=== PATIENT | female | born 1955 | race Caucasian/White ===

== ENCOUNTER 2017-02-25 12:22 | Emergency (ER) | payer MEDICARE ==
[2017-02-25 12:47] VITALS: RESP 18; TEMP 97.7; O2SAT 99
[2017-02-25 14:17] LABS: URINE BILIRUBIN NEGATIVE (NEGATIVE); URINE BLOOD NEGATIVE (NEGATIVE); URINE COLOR Yellow (YELLOW); URINE GLUCOSE (UA) NORMAL (Normal); URINE KETONE NEGATIVE (NEGATIVE); URINE LEUKOCYTE ESTERASE NEG Leu/uL (Negative); URINE PROTEIN NEGATIVE (NEGATIVE); URINE UROBILINOGEN NORMAL mg/dL (0.2-1.0); WBC URINE 1 /hpf (0-5)
--- NOTE | 2017-02-25 15:06 | C.PDOC ---
History Of Present Illness Patient is a 61 y/o female who presents to the ED with a complaint of suprapubic pain for the past two days. Patient was referred to the ED by Dr. Robles for a CT of abdomen. Patient notes experiencing nausea and vomiting x1 yesterday and admits to finishing Keflex prescription 3 days ago for a UTI. Notes urinary frequency; denies fever. Patient has no other complaints at this time. Time Seen by Provider: 02/25/17 13:25 Chief Complaint (Nursing): Abdominal Pain History Per: Patient History/Exam Limitations: no limitations Onset/Duration Of Symptoms: Days (abdominal pain x3 days; n/v x1day. ) Current Symptoms Are (Timing): Still Present Location Of Pain/Discomfort: LLQ, Suprapubic Associated Symptoms: Nausea, Vomiting. denies: Fever Past Medical History Reviewed: Historical Data, Nursing Documentation, Vital Signs Vital Signs: Last Vital Signs Temp 97.7 F 02/25/17 18:00 Pulse 59 L 02/25/17 18:00 Resp 18 02/25/17 18:00 BP 138/80 02/25/17 18:00 Pulse Ox 99 02/25/17 18:00 - Medical History PMH: Asthma, HTN, Hypothyroidism Other Surgeries: Osteotomy. - Proposify Procedures BUNIONECT/SFT/OSTEOTOMY (12/11/13) Family History: States: No Known Family Hx - Social History Hx Tobacco Use: No Hx Alcohol Use: No Hx Substance Use: No - Immunization History Hx Tetanus Toxoid Vaccination: No Hx Influenza Vaccination: No Hx Pneumococcal Vaccination: No Review Of Systems Constitutional: Negative for: Fever Cardiovascular: Negative for: Chest Pain Respiratory: Negative for: Shortness of Breath Gastrointestinal: Positive for: Nausea, Vomiting, Abdominal Pain. Negative for : Diarrhea Genitourinary: Positive for: Frequency Physical Exam - Physical Exam Appears: Well, Non-toxic Skin: Normal Color, Warm, Dry Head: Atraumatic, Normacephalic Oral Mucosa: Moist Chest: Symmetrical Cardiovascular: Rhythm Regular, No Murmur Respiratory: Normal Breath Sounds, No Rales, No Rhonchi, No Wheezing Gastrointestinal/Abdominal: Soft, No Tenderness Neurological/Psych: Oriented x3, Normal Speech, Normal Cognition ED Course And Treatment - Laboratory Results Result Diagrams: 02/25/17 15:26 02/25/17 15:26 Lab Interpretation: Normal (ua neg.) O2 Sat by Pulse Oximetry: 99 (Room air) Pulse Ox Interpretation: Normal - CT Scan/US CT A/P Other Rad Studies (CT/US): Interpreted By Me, Read By Radiologist CT/US Interpretation: Few scattered diverticulosis without evidence of diverticulitis. Reevaluation Time: 17:56 Reassessment Condition: Improved Medical Decision Making Medical Decision Making: Plan: Urine culture ordered. IV fluids and Toradol administered. LLQ abd discomfort, diverticulosis without diverticulitis ? constipation. Disposition Doctor Will See Patient In The: Office Counseled Patient/Family Regarding: Studies Performed, Diagnosis - Disposition Referrals: Agustín Robles MD [Medical Doctor] - Disposition: HOME/ ROUTINE Disposition Time: 17:56 Condition: GOOD Additional Instructions: CT del abdomen y todos los examenes de vicente y orina normal + estrenemiento: freddie un purgante ? cosa del cervic- sigue con dodge Gynecolog[facility] Instructions: Constipation (ED) Forms: [employer] (Afghan) Print Language: [id number] - Clinical Impression Clinical Impression: Abdominal pain - Scribe Statement The provider has reviewed the documentation as recorded by the Scribe Brigid Estrada All medical record entries made by the Scribe were at my direction and personally dictated by me. I have reviewed the chart and agree that the record accurately reflects my personal performance of the history, physical exam, medical decision making, and the department course for this patient. I have also personally directed, reviewed, and agree with the discharge instructions and disposition.
[2017-02-25] MEDS ORDERED: Sodium Chloride 0.9% 1,000 ML IV ONE (15:12)
[2017-02-25] MEDS ORDERED: Sodium Chloride 0.9% 1,000 ML ONE (15:17)
[2017-02-25 15:30] LABS: BASO % 0.8 % (0.0-2.0); EOS # 0.1 K/uL (0.0-0.7); EOS % 1.5 % (0.0-4.0); HEMATOCRIT 37.8 % (34.0-47.0); LYMPH % 32.8 % (20.0-40.0); MEAN CELL VOLUME 86.7 fL (81.0-99.0); MEAN CORPUSCULAR HEMOGLOBIN 29.1 pg (27.0-31.0); MEAN CORPUSCULAR HGB CONC 33.6 g/dL (33.0-37.0); MONO # 0.5 K/uL (0.0-0.8); MONO % 8.5 % (0.0-10.0); RED CELL DISTRIBUTION WIDTH 14.2 % (11.5-14.5)
[2017-02-25 15:49] LABS: CHLORIDE 105 mmol/L (98-107); POTASSIUM 3.7 mmol/L (3.6-5.2); SODIUM 141 mmol/L (132-148)
[2017-02-25 15:51] LABS: BILIRUBIN,TOTAL 1.3 mg/dL (0.2-1.3); CARBON DIOXIDE 28 mmol/L (22-30); GFR AFRICAN-AMERICAN > 60
[2017-02-25 15:52] LABS: ALB/GLOB RATIO 1.2 (1.0-2.1); ALKALINE PHOSPHATASE 75 U/L (38-126); ALT/SGPT 25 U/L (9-52); AST/SGOT 23 U/L (14-36); BLOOD UREA NITROGEN 12 mg/dL (7-17); CALCIUM 8.7 mg/dl (8.6-10.4); GLUCOSE,RANDOM 80 mg/dL (65-105); TOTAL PROTEIN 6.9 g/dL (6.3-8.3)
[2017-02-25] MEDS ORDERED: Iodixanol 320 MG/ML 200 ML BOTTLE IV ONE (16:31)
--- NOTE | 2017-02-25 17:32 | CT ---
PROCEDURE: CT Abdomen and Pelvis with contrast HISTORY: abd pain, LLQ pain x 2 days COMPARISON: None. TECHNIQUE: Contrast dose: 100 mL Visipaque 320. Axial and reformatted coronal and sagittal CT images of the abdomen and pelvis were obtained after IV contrast administration. Radiation dose: Total exam DLP = 224.01 mGy-cm. This CT exam was performed using one or more of the following dose reduction techniques: Automated exposure control, adjustment of the mA and/or kV according to patient size, and/or use of iterative reconstruction technique. FINDINGS: LOWER THORAX: There are 2 adjacent noncalcified nodule at the right lung lower lobe measures is approximately 4 millimeter seen on image 3 and 4 series 3. LIVER: Unremarkable. No gross lesion or ductal dilatation. GALLBLADDER AND BILE DUCTS: Mild gallbladder wall thickening is noted. No evidence of acute cholecystitis. PANCREAS: Unremarkable. No gross lesion or ductal dilatation. SPLEEN: Unremarkable. ADRENALS: Unremarkable. No mass. KIDNEYS AND URETERS: Unremarkable. No hydronephrosis. No solid mass. VASCULATURE: Unremarkable. No aortic aneurysm. BOWEL: Few colonic diverticulosis are seen without evidence of diverticulitis. No evidence of bowel obstruction or pneumatosis. APPENDIX: No evidence of appendicitis. PERITONEUM: Unremarkable. No free fluid. No free air. LYMPH NODES: Unremarkable. No enlarged lymph nodes. BLADDER: Unremarkable. REPRODUCTIVE: The uterus is heterogeneous mildly enlarged. The uterine cervix is moderately enlarged. The possibility of neoplasm should be excluded. No evidence of mass lesion at the adnexa. BONES: No acute fracture. OTHER FINDINGS: None. IMPRESSION: Few scattered diverticulosis without evidence of diverticulitis. Heterogeneous enlarged uterus particularly the uterine cervix. Further assessment is suggested to exclude uterine neoplasm. Mild gallbladder wall thickening without CT evidence of acute cholecystitis. Two adjacent 4 millimeter noncalcified nodules at the right lung lower lobe.
[2017-02-25 18:27] VITALS: BP 138/80; PULSE 59
== END 2017-02-25 18:26 | disposition home or self-care (01) ==
LOC: C.ER 12:22
DX: R10.30 Lower abdominal pain, unspecified (principal)
CPT/HCPCS: 74177; 80053; 81001; 83690; 85025; 87086; 87181; 96361; 96374; 99285; J1885; J7040; Q9966